=== PATIENT | female | born 2000 | race Caucasian/White ===

== ENCOUNTER 2018-02-22 12:11 | Emergency (ER) | payer OTHER ==
[~2018-02-22] VITALS: Ht 167.6 cm; Wt 72.6 kg
[~2018-02-22 12:11] MED LIST: CIPRO500 MG PO; CYCLOBENZAPRINE5 MG PO; FLAGYL500 MG PO; IBUPROFEN 800800 MG PO; ONDANSETRON HCL4 M2 PO
[2018-02-22] MEDS ORDERED: CYCLOBENZAPRINE5 MG PO (15:04)
[2018-02-22] MEDS ORDERED: IBUPROFEN 800800 M1 PO (15:04)
[2018-02-22 15:10] VITALS: BP 104/72
== END 2018-02-22 15:11 | disposition home or self-care (01) ==
LOC: M.ERS 12:11
DX: S16.1XXA Strain of muscle, fascia and tendon at neck level, initial encounter (principal); S29.012A Strain of muscle and tendon of back wall of thorax, initial encounter; S00.83XA Contusion of other part of head, initial encounter; S20.219A Contusion of unspecified front wall of thorax, initial encounter; Y08.89XA Assault by other specified means, initial encounter; Y93.89 Activity, other specified; Y92.89 Other specified places as the place of occurrence of the external cause; Y99.8 Other external cause status